=== PATIENT | male | born 1950 | race African-American/Black ===

== ENCOUNTER 2019-10-28 10:13 | Emergency (ER) | payer OTHER, MEDICAID ==
[2019-10-28] VITALS (10 sets, daily range): BP systolic 105–142; BP diastolic 75–97
[~2019-10-28] VITALS: Ht 177.8 cm; Wt 120.0 kg
[~2019-10-28 10:13] MED LIST: AMLO10TA80 MT; ATOR20TA65 PO; HYDR-2510 MT; POTA-9 MT
[2019-10-28 10:59] LABS: BASOPHILS % 1.2 % (0.0-2.0); EOSINOPHILS % 6.1 % (0.0-5.0); HEMATOCRIT. 27.6 % (42.0-52.0); HEMOGLOBIN. 9.2 g/dL (14.0-18.0); LYMPHOCYTES % 24.6 % (20.0-50.0); MEAN CORPUSCULAR HEMOGLOBIN 30.9 pg (28.0-32.0); MEAN CORPUSCULAR VOLUME 93.1 fL (80.0-94.0); NEUTROPHILS % 59.1 % (40.0-76.0); PLATELET 169 x1000/uL (130-400); RED BLOOD CELL COUNT 2.97 mill/uL (4.7-6.1); RED CELL DISTRIBUTION WIDTH 18.4 % (11.6-14.6)
[2019-10-28 11:09] LABS: CHLORIDE 106 mEq/L (98-107)
[2019-10-28] MEDS ORDERED: LIDOCAINE HCL 1% 20ML VIAL (Pyxis) INJ ONE (12:47)
[2019-10-28] MEDS ORDERED: SODIUM BICARBONATE 4% (2.4MEQ) 5ML VIAL IV ONE (12:47)
[2019-10-28] MEDS ORDERED: CEFAZOLIN 1000MG PREMIX 50 ML IV SCH (13:30)
[2019-10-28] MEDS ORDERED: IOHEXOL-300 50 ML BOTTLE IV ONE (13:34)
[2019-10-28] MEDS ORDERED: FENTANYL CITRATE/PF 50MCG/ML 2ML VIAL IV SCH (13:45)
[2019-10-28] MEDS ORDERED: FENTANYL CITRATE/PF 50MCG/ML 2ML VIAL ONE (13:46)
== END 2019-10-28 14:35 | disposition home or self-care (01) ==
LOC: ER 10:13
DX: T85.9XXA Unspecified complication of internal prosthetic device, implant and graft, initial encounter (principal); R53.1 Weakness; I10 Essential (primary) hypertension
CPT/HCPCS: 36415; 71045; 77001; 80053; 85025; 93005; 96365; 96375; 99285; C1750; C1769; J1642; J3010; J3490; Q9967; 99152; 99153; G0500

== ENCOUNTER 2021-02-22 07:01 | Emergency (ER) | payer OTHER, MEDICAID ==
[~2021-02-22] VITALS: Ht 170.2 cm; Wt 102.0 kg
[~2021-02-22 07:01] MED LIST changes: -HYDR-2510 MT; +HYDR50TA MT
[2021-02-22 09:23] VITALS: BP 153/86
[2021-02-22 09:51] LABS: CHLORIDE 104 mEq/L (98-107)
[2021-02-22 09:55] LABS: HEMATOCRIT. 36.8 % (42.0-52.0); MEAN CORPUSCULAR HEMOGLOBIN 29.6 pg (28.0-32.0); MEAN PLATELET VOLUME 7.7 fl (7.4-10.4); PLATELET 208 x1000/uL (130-400); RED BLOOD CELL COUNT 4.04 mill/uL (4.7-6.1)
[2021-02-22 13:19] LABS: PLATELET ESTIMATE NORMAL
== END 2021-02-22 11:28 | disposition home or self-care (01) ==
LOC: ER 07:01
DX: I12.9 Hypertensive chronic kidney disease with stage 1 through stage 4 chronic kidney disease, or unspecified chronic kidney disease (principal); N18.9 Chronic kidney disease, unspecified; Z20.822 Contact with and (suspected) exposure to COVID-19
CPT/HCPCS: 36415; 71045; 80053; 85025; 87426; 99284

== ENCOUNTER 2023-11-09 10:53 | Emergency (ER) | payer MEDICARE, MEDICAID ==
[~2023-11-09] VITALS: Ht 172.7 cm; Wt 90.0 kg
[~2023-11-09 10:53] MED LIST changes: +POTA-202 MT; -POTA-9 MT
[2023-11-09 10:58] VITALS: TEMP 98.7; O2SAT 96
[2023-11-09 13:48] LABS: EOSINOPHILS % 4.6 % (0.0-5.0); HEMOGLOBIN. 11.4 g/dL (14.0-18.0); LYMPHOCYTES % 19.5 % (20.0-50.0); MEAN CORPUSCULAR HEMOGLOBIN 31.1 pg (28.0-32.0); MEAN CORPUSCULAR HGB CONC 32.6 g/dL (31.0-37.0); MEAN CORPUSCULAR VOLUME 95.2 fL (80.0-94.0); MEAN PLATELET VOLUME 7.3 fl (7.4-10.4); MONOCYTES % 10.4 % (2.0-8.0); NEUTROPHILS % 64.5 % (40.0-76.0); PLATELET 161 x1000/uL (130-400); RED BLOOD CELL COUNT 3.68 mill/uL (4.7-6.1); RED CELL DISTRIBUTION WIDTH 13.5 % (11.6-14.6); WHITE BLOOD COUNT 6.6 x1000/uL (4.5-11.0)
[2023-11-09 13:54] LABS: CARBON DIOXIDE 33 mEq/L (21-32); CHLORIDE 97 mEq/L (98-107); POTASSIUM 3.9 mEq/L (3.5-5.1); SODIUM 135 mEq/L (136-145)
[2023-11-09 13:55] LABS: CALCIUM 9.8 mg/dL (8.7-10.4)
[2023-11-09 14:00] LABS: GLUCOSE 81 mg/dL (70-105); UREA NITROGEN BLOOD 21 mg/dL (9-23)
[2023-11-09 14:01] LABS: ALANINE AMINOTRANSFERASE 13 IU/L (10-49); ASPARTATE AMINOTRANSFERASE 16 IU/L (<34)
[2023-11-09 14:02] LABS: ALBUMIN 4.3 g/dL (3.2-4.8); BILIRUBIN TOTAL 1.1 mg/dL (0.1-1.0); PROTEIN TOTAL 7.3 g/dL (6.0-8.3)
[2023-11-09] MEDS: TRAMADOL HCL/ACETAMINOPHEN 37.5/325MG TABLET PO ONE (14:12)
[2023-11-09] MEDS ORDERED: TRAM-534 MT (15:47)
[2023-11-09 16:00] VITALS: BP 141/78; PULSE 79; RESP 16; O2SAT 97
== END 2023-11-09 16:25 | disposition home or self-care (01) ==
LOC: ER 10:53
DX: M79.605 Pain in left leg (principal); M79.604 Pain in right leg; I10 Essential (primary) hypertension; N28.9 Disorder of kidney and ureter, unspecified; Z79.899 Other long term (current) drug therapy
CPT/HCPCS: 36415; 80053; 83735; 85025; 99283

== ENCOUNTER 2024-12-18 11:18 | Emergency (ER) | payer MEDICARE, MEDICAID ==
[~2024-12-18] VITALS: Ht 170.2 cm; Wt 75.0 kg
[~2024-12-18 11:18] MED LIST changes: +TRAM-534 MT
[2024-12-18 11:22] VITALS: TEMP 36.9; O2SAT 98
[2024-12-18 11:49] LABS: BASOPHILS % 1.3 % (0.0-2.0); EOSINOPHILS % 3.4 % (0.0-5.0); HEMATOCRIT. 32.5 % (42.0-52.0); HEMOGLOBIN. 10.6 g/dL (14.0-18.0); LYMPHOCYTES % 18.3 % (20.0-50.0); MEAN PLATELET VOLUME 7.3 fl (7.4-10.4); MONOCYTES % 9.2 % (2.0-8.0); NEUTROPHILS % 67.8 % (40.0-76.0); PLATELET 178 x1000/uL (130-400); RED BLOOD CELL COUNT 3.54 mill/uL (4.7-6.1); RED CELL DISTRIBUTION WIDTH 13.9 % (11.6-14.6)
[2024-12-18 12:06] LABS: UREA NITROGEN BLOOD 36.0 mg/dL (9-23)
[2024-12-18 12:07] LABS: TROPONIN I HIGH SENSITIVITY 20 ng/L (3.0-53)
[2024-12-18 12:10] LABS: INR 1.1
[2024-12-18 12:35] LABS: CREATININE 5.4 mg/dL (0.6-1.3)
[2024-12-18] MEDS ORDERED: HYDR-4001 MT (12:52)
[2024-12-18] MEDS: HYDROCODONE/ACETAMINOPHEN 5/325MG TABLET PO STA (13:13)
[2024-12-18 13:20] VITALS: BP 141/78; PULSE 80; RESP 16; O2SAT 100
== END 2024-12-18 13:21 | disposition home or self-care (01) ==
LOC: ER 11:18
DX: M25.562 Pain in left knee (principal); I10 Essential (primary) hypertension; Z79.899 Other long term (current) drug therapy; Z98.890 Other specified postprocedural states
CPT/HCPCS: 36415; 71045; 80048; 84484; 85025; 86850; 86900; 93005; 99285